=== PATIENT | female | born 1975 | race Caucasian/White ===

== ENCOUNTER 2017-10-25 11:58 | Emergency (ER) | payer MEDICAID ==
[~2017-10-25] VITALS: Ht 170.2 cm; Wt 163.0 kg
[~2017-10-25 11:58] MED LIST: BENZ2TAB7 PO; CALC-212; CALC500T11 PO; DOCU-28 PO; GABA-532 PO; HYDR-3686 PO; LAMO100T2 PO; LURA120T PO; NAPR-1154 PO; PANT-47 PO; TRAZ300T2 PO
[2017-10-25] MEDS ORDERED: HYDROcodone/acetaminophen 10/325mg tab PO ONE (12:30)
[2017-10-25] MEDS ORDERED: HYDR-569 PO (13:00)
[2017-10-25 13:06] VITALS: BP 186/84
== END 2017-10-25 13:07 | disposition home or self-care (01) ==
LOC: ER 11:59
DX: S00.83XA Contusion of other part of head, initial encounter (principal); S40.812A Abrasion of left upper arm, initial encounter; S10.91XA Abrasion of unspecified part of neck, initial encounter; G43.909 Migraine, unspecified, not intractable, without status migrainosus; I10 Essential (primary) hypertension; K21.9 Gastro-esophageal reflux disease without esophagitis; E11.9 Type 2 diabetes mellitus without complications; F15.10 Other stimulant abuse, uncomplicated; F12.10 Cannabis abuse, uncomplicated; Z88.6 Allergy status to analgesic agent; Z88.8 Allergy status to other drugs, medicaments and biological substances; Y04.8XXA Assault by other bodily force, initial encounter; Y93.89 Activity, other specified; Y92.89 Other specified places as the place of occurrence of the external cause; Y99.8 Other external cause status
CPT/HCPCS: 70110; 99284